=== PATIENT | male | born 1955 | race Two or more races ===

== ENCOUNTER 2020-10-07 10:14 | Emergency (ER) | payer SELFPAY ==
[~2020-10-07] VITALS: Ht 170.2 cm; Wt 86.2 kg
[2020-10-07 10:54] LABS: Basophils # (auto) 0 10 ^3/uL (0-0.2); Basophils % (auto) 0.4 % (0.0-2.0); Eosinophils # (auto) 0.2 10 ^3/uL (0-0.8); Eosinophils % (auto) 2.1 % (0.0-7.0); Hematocrit 41.6 % (41.0-53.0); Hemoglobin 14.7 g/dL (13.5-17.5); Lymphocytes # (auto) 2.7 10 ^3/uL (0.4-5.4); Lymphocytes % (auto) 23.6 % (10.0-50.0); Mean Corpuscular Hemoglobin 30.8 pg (28.0-32.0); Mean Corpuscular Hgb Conc. 35.4 g/dL (32.0-36.0); Mean Corpuscular Volume 87.2 fL (80.0-100.0); Monocytes # (auto) 0.9 10 ^3/uL (0-1.3); Neutrophils # (auto) 7.5 10 ^3/uL (1.6-8.6); Neutrophils % (auto) 65.9 % (37.0-80.0); Nucleated Red Blood Cells % 0.1 %; Red Blood Cells 4.77 10^6/uL (4.5-5.90); Red Cell Distribution Width 13.2 % (11.8-14.3); White Blood Cell 11.4 10^3/uL (4.4-10.8)
[2020-10-07] MEDS ORDERED: KETOROLAC TROMETH 30 MG/ML 1ML VIAL IV ONE (11:30)
[2020-10-07] MEDS ORDERED: SODIUM CHLORIDE 0.9% 500 ML IV ONE (11:30)
[2020-10-07] MEDS ORDERED: cefTRIAXone 1GM/50ML D5W 50 ML IV ONE (11:30)
[2020-10-07 11:54] LABS: Urine Bacteria NONE SEEN /hpf (None Seen); Urine Blood 3+ /uL (Negative); Urine Specific Gravity 1.024 (1.001-1.035); Urine WBC 6 /hpf (0 - 3)
[2020-10-07 12:45] VITALS: BP 118/75
== END 2020-10-07 12:49 | disposition home or self-care (01) ==
LOC: ER 10:14
DX: N45.1 Epididymitis (principal); N45.2 Orchitis
CPT/HCPCS: 36415; 76870; 81001; 85025; 85049; 96365; 96375; 99284; J0696; J1885; J7040

== ENCOUNTER 2023-09-14 08:45 | Inpatient (IN) | payer MEDICARE, MEDICAID ==
[~2023-09-14] VITALS: Ht 165.1 cm; Wt 79.2 kg
[2023-09-14] MEDS: amLODIPine BESYLATE 5 MG TAB PO ONE (09:16)
[2023-09-14 09:39] LABS: Basophils # (auto) 0 10 ^3/uL (0-0.2); Basophils % (auto) 0.4 % (0.0-2.0); Eosinophils # (auto) 0.3 10 ^3/uL (0-0.8); Eosinophils % (auto) 3.4 % (0.0-7.0); Hemoglobin 8.8 g/dL (13.5-17.5); Lymphocytes # (auto) 1.2 10 ^3/uL (0.4-5.4); Lymphocytes % (auto) 14.9 % (10.0-50.0); Mean Corpuscular Hemoglobin 30.8 pg (28.0-32.0); Mean Corpuscular Hgb Conc. 33.8 g/dL (32.0-36.0); Mean Corpuscular Volume 91.3 fL (80.0-100.0); Monocytes # (auto) 0.5 10 ^3/uL (0-1.3); Monocytes % (auto) 6.4 % (0.0-12.0); Neutrophils # (auto) 6.3 10 ^3/uL (1.6-8.6); Neutrophils % (auto) 74.9 % (37.0-80.0); Red Blood Cells 2.84 10^6/uL (4.5-5.90); Red Cell Distribution Width 13.3 % (11.8-14.3); White Blood Cell 8.4 10^3/uL (4.4-10.8)
[2023-09-14 09:46] LABS: Urine Bacteria FEW /hpf (None Seen); Urine Blood 2+ /uL (Negative); Urine Clarity Clear (Clear); Urine Protein, UAD 3+ (Negative); Urine Specific Gravity 1.011 (1.001-1.035); Urine Urobilinogen Normal (Negative); Urine WBC 3 /hpf (0 - 3)
[2023-09-14 09:47] LABS: Urine Color Straw (Yellow)
[2023-09-14 09:49] LABS: Anion Gap 18 (5-15); Calcium 6.4 mg/dL (8.5-10.1); Carbon Dioxide 14 mmol/L (20-30); Chloride 104 mmol/L (98-107); Sodium 136 mmol/L (136-145)
[2023-09-14 09:55] LABS: Glucose 89 mg/dL (74-106)
[2023-09-14 10:03] LABS: BUN/Creatinine Ratio 10.1 (10.0-20.0)
[2023-09-14 10:52] LABS: Blood Urea Nitrogen 150 mg/dL (9-23)
[2023-09-14] MEDS ORDERED: hydrALAZINE HCL 20 MG/ML VL IV PRN (12:15)
[2023-09-14] MEDS ORDERED: HYDROcodone-ACET 5/325MG TAB PO PRN (12:15)
[2023-09-14] MEDS ORDERED: MORPHINE SULFATE INJ 2 MG/ml SYRG IV PRN (12:15)
[2023-09-14] MEDS ORDERED: DOCUSATE SOD 100 MG CAP PO PRN (12:15)
[2023-09-14] MEDS ORDERED: ONDANSETRON HCL 4 MG/2 ML VIAL IV PRN (12:15)
[2023-09-14 12:26] LABS: % Iron Saturation 57.2 % (20-55)
[2023-09-14 12:28] LABS: Magnesium 2.3 mg/dL (1.6-2.6); Phosphorus 11.7 mg/dL (2.4-5.1)
[2023-09-14] MEDS ORDERED: hydrALAZINE HCL 25 MG TAB PO PRN (14:30)
[2023-09-14 14:55] VITALS: PULSE 91; RESP 17; O2SAT 98
[2023-09-14] MEDS: METOPROLOL TARTRATE 50 MG TAB PO SCH (15:07)
[2023-09-14] MEDS: hydrALAZINE HCL 25 MG TAB PO SCH (15:15)
[2023-09-14] MEDS: FAMOTIDINE 20 MG TAB PO SCH (15:44)
[2023-09-14] MEDS: SODIUM BICARBONATE 650 MG TAB PO SCH (18:20)
[2023-09-14] MEDS: SEVELAMER 800 MG TAB PO SCH (18:20)
[2023-09-14] MEDS ORDERED: SODIUM ZIRCONIUM CYCL 10 GM PAK PO SCH (19:45)
[2023-09-14 20:00] VITALS: PULSE 70; RESP 17; O2SAT 99
[2023-09-14] MEDS: SODIUM ZIRCONIUM CYCL 10 GM PAK PO SCH (20:58)
[2023-09-14 21:42] LABS: Creatinine, Urine 54.69 mg/dL (30.0-125.0)
[2023-09-14 21:45] LABS: Protein, Urine 475.2 mg/dL (0.0-11.9); Urine Protein/Creatinine Ratio 8.69
[2023-09-14 22:31] VITALS: BP 109/93; PULSE 72; RESP 16; TEMP 97.6; O2SAT 97
[2023-09-14 22:35] VITALS: PULSE 72; RESP 16; O2SAT 97
[2023-09-14 23:59] VITALS: BP 109/93; PULSE 72; RESP 16; TEMP 97.6; O2SAT 97
[2023-09-15 01:00] VITALS: BP 150/84; PULSE 69; RESP 18; TEMP 98.4; O2SAT 99
[2023-09-15 05:00] VITALS: BP 146/81; PULSE 69; RESP 18; TEMP 98; O2SAT 98
[2023-09-15 07:02] LABS: Basophils # (auto) 0 10 ^3/uL (0-0.2); Basophils % (auto) 0.6 % (0.0-2.0); Eosinophils # (auto) 0.3 10 ^3/uL (0-0.8); Eosinophils % (auto) 3.4 % (0.0-7.0); Hematocrit 24.4 % (41.0-53.0); Hemoglobin 8.3 g/dL (13.5-17.5); Lymphocytes # (auto) 1.4 10 ^3/uL (0.4-5.4); Lymphocytes % (auto) 18.4 % (10.0-50.0); Mean Corpuscular Hemoglobin 30.8 pg (28.0-32.0); Mean Corpuscular Hgb Conc. 33.9 g/dL (32.0-36.0); Mean Corpuscular Volume 90.8 fL (80.0-100.0); Monocytes # (auto) 0.6 10 ^3/uL (0-1.3); Monocytes % (auto) 7.4 % (0.0-12.0); Neutrophils # (auto) 5.5 10 ^3/uL (1.6-8.6); Neutrophils % (auto) 70.2 % (37.0-80.0); Red Blood Cells 2.69 10^6/uL (4.5-5.90); Red Cell Distribution Width 13.5 % (11.8-14.3); White Blood Cell 7.9 10^3/uL (4.4-10.8)
[2023-09-15 07:16] LABS: Alanine Aminotransferase 12 U/L (7-40); Alkaline Phosphatase 51 U/L (46-116); Anion Gap 17 (5-15); Aspartate Aminotransferase < 8 U/L (13-40); BUN/Creatinine Ratio 9.7 (10.0-20.0); Bilirubin, Total < 0.2 mg/dL (0.2-1.0); Calcium 6.4 mg/dL (8.7-10.4); Carbon Dioxide 14 mmol/L (20-30); Chloride 104 mmol/L (98-107); Glucose 90 mg/dL (74-106); Magnesium 2.2 mg/dL (1.6-2.6); Potassium 4.9 mmol/L (3.5-5.1); Sodium 135 mmol/L (136-145); Total Protein 6.6 g/dL (5.7-8.2)
[2023-09-15 07:24] LABS: Blood Urea Nitrogen 147 mg/dL (9-23)
[2023-09-15 08:00] LABS: INR 1.09 (0.9-1.15); Partial Thromboplastin Time 30.3 SEC (24.5-34.5); Prothrombin Time 11.5 sec (9.3-11.8)
[2023-09-15 09:29] VITALS: BP 152/77; PULSE 66; RESP 17; TEMP 97.9; O2SAT 96
[2023-09-15] MEDS: amLODIPine BESYLATE 5 MG TAB PO SCH (09:47)
[2023-09-15] MEDS: LOSARTAN POTASSIUM 50 MG TAB PO SCH (09:50)
[2023-09-15] MEDS: LIDOCAINE 1% HCL (LOCAL ANESTH.) INJ 20ML MDV IJ ONE (12:00)
[2023-09-15 12:30] VITALS: BP 160/82; PULSE 64; RESP 19; TEMP 97.8; O2SAT 99
[2023-09-15] MEDS: SODIUM CHL 0.9% 1000 ML BAG XX ONE (17:17)
[2023-09-15 21:00] VITALS: BP 150/75; PULSE 65; RESP 18; TEMP 97.8; O2SAT 97
[2023-09-15] MEDS: EPOETIN ALFA-EPBX 10,000 UNIT/1ML VIAL SC ONE (21:03)
[2023-09-16 01:00] VITALS: BP 144/68; PULSE 69; RESP 20; TEMP 98.5; O2SAT 98
[2023-09-16 05:00] VITALS: BP 149/76; PULSE 65; RESP 20; TEMP 98.3; O2SAT 99
[2023-09-16 06:08] LABS: Basophils # (auto) 0.1 10 ^3/uL (0-0.2); Basophils % (auto) 0.8 % (0.0-2.0); Eosinophils # (auto) 0.2 10 ^3/uL (0-0.8); Eosinophils % (auto) 2.7 % (0.0-7.0); Hematocrit 23.3 % (41.0-53.0); Hemoglobin 8.1 g/dL (13.5-17.5); Lymphocytes # (auto) 1.3 10 ^3/uL (0.4-5.4); Lymphocytes % (auto) 16.9 % (10.0-50.0); Mean Corpuscular Hemoglobin 30.8 pg (28.0-32.0); Mean Corpuscular Hgb Conc. 34.9 g/dL (32.0-36.0); Mean Corpuscular Volume 88.3 fL (80.0-100.0); Monocytes # (auto) 0.8 10 ^3/uL (0-1.3); Monocytes % (auto) 10.2 % (0.0-12.0); Neutrophils # (auto) 5.2 10 ^3/uL (1.6-8.6); Neutrophils % (auto) 69.4 % (37.0-80.0); Red Blood Cells 2.64 10^6/uL (4.5-5.90); Red Cell Distribution Width 13.6 % (11.8-14.3); White Blood Cell 7.6 10^3/uL (4.4-10.8)
[2023-09-16 06:38] LABS: Albumin 3.9 g/dL (3.2-4.8); Alkaline Phosphatase 50 U/L (46-116); Anion Gap 13 (5-15); Aspartate Aminotransferase < 8 U/L (13-40); BUN/Creatinine Ratio 8.8 (10.0-20.0); Calcium 7.2 mg/dL (8.7-10.4); Carbon Dioxide 23 mmol/L (20-30); Chloride 101 mmol/L (98-107); Glucose 86 mg/dL (74-106); Magnesium 2.1 mg/dL (1.6-2.6); Potassium 3.9 mmol/L (3.5-5.1); Sodium 137 mmol/L (136-145)
[2023-09-16 06:39] LABS: Bilirubin, Total 0.2 mg/dL (0.2-1.0); Phosphorus 10.2 mg/dL (2.4-5.1); Total Protein 6.4 g/dL (5.7-8.2)
[2023-09-16 06:45] LABS: Alanine Aminotransferase 9 U/L (7-40); Blood Urea Nitrogen 102 mg/dL (9-23)
[2023-09-16] MEDS ORDERED: SODIUM CHL 0.9% 1000 ML BAG XX ONE (07:00)
[2023-09-16] MEDS ORDERED: SODIUM BICARBONATE 650 MG TAB PO SCH (08:00)
[2023-09-16 08:56] LABS: Hepatitis B Surface Antigen Negative (Negative)
[2023-09-16 09:17] LABS: Hepatitis A Ab IgM Negative
[2023-09-16 09:18] LABS: Hepatitis B Core IgM Negative
[2023-09-16 09:19] LABS: Hepatitis C Antibody Negative (Negative)
[2023-09-16] MEDS: hydrALAZINE HCL 25 MG TAB PO SCH (09:28)
[2023-09-16] MEDS: LOSARTAN POTASSIUM 50 MG TAB PO SCH (09:30)
[2023-09-16 09:33] VITALS: BP 147/85; PULSE 61; RESP 18; TEMP 98.1; O2SAT 97
[2023-09-16] MEDS: ACETAMINOPHEN 325 MG TAB PO PRN (09:41)
[2023-09-16] MEDS ORDERED: EPOETIN ALFA-EPBX 10,000 UNIT/1ML VIAL SC SCH (10:00)
[2023-09-16 12:41] VITALS: BP 144/83; PULSE 65; RESP 19; TEMP 97.8; O2SAT 97
[2023-09-16 17:07] VITALS: BP 119/66; PULSE 66; RESP 20; TEMP 98.1; O2SAT 96
[2023-09-16 21:00] VITALS: BP 141/87; PULSE 69; RESP 20; TEMP 97.5; O2SAT 97
[2023-09-16] MEDS: EPOETIN ALFA-EPBX 10,000 UNIT/1ML VIAL SC SCH (21:23)
[2023-09-17] VITALS (10 sets, daily range): BP systolic 140–166; BP diastolic 74–84; PULSE 62–71; RESP 12–18; TEMP 98.2–98.9; O2SAT 94–98
[2023-09-17 06:32] LABS: Anion Gap 10 (5-15); Calcium 7.9 mg/dL (8.7-10.4); Carbon Dioxide 27 mmol/L (20-30); Chloride 101 mmol/L (98-107); Potassium 3.6 mmol/L (3.5-5.1); Sodium 138 mmol/L (136-145)
[2023-09-17 06:37] LABS: Glucose 93 mg/dL (74-106)
[2023-09-17 06:39] LABS: BUN/Creatinine Ratio 7.4 (10.0-20.0)
[2023-09-17 06:41] LABS: Phosphorus 6.8 mg/dL (2.4-5.1)
[2023-09-17 06:43] LABS: Basophils # (auto) 0.1 10 ^3/uL (0-0.2); Eosinophils # (auto) 0.2 10 ^3/uL (0-0.8); Hemoglobin 8.4 g/dL (13.5-17.5); Lymphocytes # (auto) 2.1 10 ^3/uL (0.4-5.4); Mean Corpuscular Hemoglobin 31.1 pg (28.0-32.0); White Blood Cell 7.5 10^3/uL (4.4-10.8)
[2023-09-17 06:46] LABS: Basophils % (auto) 0.7 % (0.0-2.0); Blood Urea Nitrogen 70 mg/dL (9-23); Hematocrit 24.3 % (41.0-53.0); Lymphocytes % (auto) 27.6 % (10.0-50.0); Mean Corpuscular Hgb Conc. 34.6 g/dL (32.0-36.0); Mean Corpuscular Volume 89.9 fL (80.0-100.0); Monocytes # (auto) 0.9 10 ^3/uL (0-1.3); Neutrophils # (auto) 4.2 10 ^3/uL (1.6-8.6); Neutrophils % (auto) 56.7 % (37.0-80.0); Nucleated Red Blood Cells % 0.1 %; Red Cell Distribution Width 13.2 % (11.8-14.3)
[2023-09-17] MEDS ORDERED: SODIUM CHL 0.9% 1000 ML BAG XX ONE (07:00)
[2023-09-17] MEDS: LIDOCAINE 2%HCL (LOCAL ANESTH.) INJ 20ML MDV ONE (10:35)
[2023-09-17] MEDS: fentaNYL CITRATE 100 MCG/2 ML VL ONE (10:37)
[2023-09-17] MEDS: HEPARIN SODIUM (PORCINE) 5000 UNITS/ML 1ML VIAL ONE (10:37)
[2023-09-17] MEDS: MIDAZOLAM HCL 2MG/2ML 2ml VIAL (1mg/ml) ONE (10:37)
[2023-09-17] MEDS: ceFAZolin 1GM/50ML 50 ML IV ONE (10:55)
[2023-09-17] MEDS: ERGOCALCIFEROL 50,000 UNIT(1.25MG) CAP PO SCH (16:38)
[2023-09-17] MEDS: LOSARTAN POTASSIUM 50 MG TAB PO SCH (22:29)
[2023-09-17] MEDS: EPOETIN ALFA-EPBX 10,000 UNIT/1ML VIAL SC ONE (22:30)
[2023-09-18 01:00] VITALS: BP 146/83; PULSE 55; RESP 18; TEMP 99.1; O2SAT 98
[2023-09-18] MEDS: MELATONIN 5 MG TAB PO ONE (01:24)
[2023-09-18 05:00] VITALS: BP 121/87; PULSE 60; RESP 16; TEMP 98.3; O2SAT 97
[2023-09-18 06:47] LABS: Basophils # (auto) 0.1 10 ^3/uL (0-0.2); Basophils % (auto) 0.6 % (0.0-2.0); Eosinophils # (auto) 0.2 10 ^3/uL (0-0.8); Eosinophils % (auto) 2.5 % (0.0-7.0); Hematocrit 25.4 % (41.0-53.0); Hemoglobin 8.5 g/dL (13.5-17.5); Lymphocytes # (auto) 1.6 10 ^3/uL (0.4-5.4); Lymphocytes % (auto) 18.1 % (10.0-50.0); Mean Corpuscular Hemoglobin 30.9 pg (28.0-32.0); Mean Corpuscular Hgb Conc. 33.6 g/dL (32.0-36.0); Mean Corpuscular Volume 91.8 fL (80.0-100.0); Monocytes # (auto) 0.9 10 ^3/uL (0-1.3); Monocytes % (auto) 9.9 % (0.0-12.0); Neutrophils # (auto) 5.9 10 ^3/uL (1.6-8.6); Neutrophils % (auto) 68.9 % (37.0-80.0); Red Blood Cells 2.76 10^6/uL (4.5-5.90); White Blood Cell 8.6 10^3/uL (4.4-10.8)
[2023-09-18] MEDS ORDERED: SODIUM CHL 0.9% 1000 ML BAG XX ONE (07:00)
[2023-09-18 07:31] LABS: Alanine Aminotransferase 11 U/L (7-40); Alkaline Phosphatase 52 U/L (46-116); Anion Gap 10 (5-15); BUN/Creatinine Ratio 5.4 (10.0-20.0); Calcium 8.2 mg/dL (8.5-10.1); Carbon Dioxide 27 mmol/L (20-30); Chloride 102 mmol/L (98-107); Glucose 83 mg/dL (74-106); Magnesium 2.1 mg/dL (1.6-2.6); Potassium 3.8 mmol/L (3.5-5.1); Sodium 139 mmol/L (136-145)
[2023-09-18 07:32] LABS: Albumin 4.1 g/dL (3.2-4.8); Aspartate Aminotransferase < 8 U/L (13-40)
[2023-09-18 07:33] LABS: Bilirubin, Total 0.3 mg/dL (0.2-1.0); Total Protein 6.6 g/dL (5.7-8.2)
[2023-09-18 07:42] LABS: Blood Urea Nitrogen 39 mg/dL (9-23)
[2023-09-18 09:00] VITALS: BP 138/69; PULSE 63; RESP 18; TEMP 98.3; O2SAT 96
[2023-09-18] MEDS ORDERED: AML5T PO (11:46)
[2023-09-18] MEDS ORDERED: MET50T PO (11:46)
[2023-09-18] MEDS ORDERED: ERGO1CAP23 PO (11:46)
[2023-09-18] MEDS ORDERED: SEVE800T7 PO (11:46)
[2023-09-18] MEDS ORDERED: LOSA-534 PO (11:46)
[2023-09-18] MEDS ORDERED: HYDR25TA87 PO (11:46)
[2023-09-18 13:00] VITALS: BP 144/95; PULSE 69; RESP 18; TEMP 98.2; O2SAT 96
[2023-09-18 15:24] VITALS: BP 140/83; PULSE 55; TEMP 36.8
[2023-09-18 17:00] VITALS: BP 117/62; PULSE 81; RESP 18; TEMP 98; O2SAT 98
[2023-09-18] MEDS ORDERED: EPOETIN ALFA-EPBX 10,000 UNIT/1ML VIAL SC ONE (21:00)
== END 2023-09-18 17:20 | disposition home or self-care (01) | DRG 674 ==
LOC: ER 08:45 → OVERFLOW 12:05 → WEST WING 22:01
PROVIDERS: ADMIT Internal Medicine Pulmonary Disease; ATTEND Internal Medicine Pulmonary Disease
PROC: 5A1D70Z Performance of Urinary Filtration, Intermittent, Less than 6 Hours Per Day (ICD-10-PCS; principal; 2023-09-15)
PROC: 02HV33Z Insertion of Infusion Device into Superior Vena Cava, Percutaneous Approach (ICD-10-PCS; 2023-09-15)
PROC: 5A1D70Z Performance of Urinary Filtration, Intermittent, Less than 6 Hours Per Day (ICD-10-PCS; 2023-09-16)
PROC: 0JH63XZ Insertion of Tunneled Vascular Access Device into Chest Subcutaneous Tissue and Fascia, Percutaneous Approach (ICD-10-PCS; 2023-09-17)
PROC: 02H633Z Insertion of Infusion Device into Right Atrium, Percutaneous Approach (ICD-10-PCS; 2023-09-17)
PROC: B5181ZA Fluoroscopy of Superior Vena Cava using Low Osmolar Contrast, Guidance (ICD-10-PCS; 2023-09-17)
PROC: B548ZZA Ultrasonography of Superior Vena Cava, Guidance (ICD-10-PCS; 2023-09-17)
DX: N17.9 Acute kidney failure, unspecified (principal); E87.20 Acidosis, unspecified; I12.0 Hypertensive chronic kidney disease with stage 5 chronic kidney disease or end stage renal disease; N18.6 End stage renal disease; I16.0 Hypertensive urgency; D63.1 Anemia in chronic kidney disease; E87.5 Hyperkalemia; E83.39 Other disorders of phosphorus metabolism; Z83.3 Family history of diabetes mellitus; Z82.49 Family history of ischemic heart disease and other diseases of the circulatory system
CPT/HCPCS: 36415; 36556; 36558; 71045; 76775; 77001; 80048; 80053; 80074; 81001; 82306; 82570; 82728; 83540; 83550; 83735; 83970; 84100; 84156; 84300; 84484; 84550; 85025; 85610; 85730; 86850; 86900; 86901; 90935; 93005; 99152; C1894; G0378; J1642; J2001; J2250

== ENCOUNTER 2024-08-07 10:49 | Inpatient (IN) | payer MEDICARE, MEDICAID ==
[~2024-08-07] VITALS: Ht 167.6 cm; Wt 66.3 kg
[~2024-08-07 10:49] MED LIST: AML5T PO; ERGO1CAP23 PO; HYDR25TA87 PO; LOSA-534 PO; MET50T PO; SEVE800T7 PO
--- NOTE | 2024-08-07 11:21 | ED.PDOC ---
History of Present Illness HPI Comments 69 year old male presents to the ED with a chief complaint of generalized weakness onset 1 week. Patient sates he has been experiencing generalized weakness, shortness of breath, nausea, abdominal pain and cough with phlegm. Patient gets dialysis on Wednesday, , Wednesday. PMHx HTN. Denies vomiting, diarrhea, headache, dizziness, chest pain, dysuria. No other symptoms or modifying factors present at this time. Time Seen by MD: 11:01 Primary Care Provider: LUCERO Reviewed Notes: Medications, Allergies Allergies: Coded Allergies: NO KNOWN ALLERGIES (Unverified , 10/07/20) Home Meds Active Scripts Sevelamer Hydrochloride (Renagel) 800 Mg Tab, 1600 MG PO TIDWM for 30 Days, #180 TAB 2 Refills Prov:[facility] 09/18/23 Metoprolol Tartrate (LOPRESSOR TABLET) 50 Mg Tb, 50 MG PO BID for 30 Days, #60 TAB 2 Refills Prov:[facility] 09/18/23 Losartan Potassium (Losartan Potassium) 50 Mg Tab, 100 MG PO DAILY for 30 Days, #60 TAB 2 [facility] Hydralazine HCl (Hydralazine HCl) 25 Mg Tab, 50 MG PO Q6H for 30 Days, #240 TAB 2 Refills Prov:[facility] 09/18/23 Ergocalciferol (VITAMIN D 63653 UNIT) 50,000 [place], [address] UNIT PO Q7D for 90 Days, #16 CAP Prov:[facility] 09/18/23 Amlodipine Besylate (NORVASC TABLET) 5 Mg Tb, 10 MG PO DAILY for 30 Days, #60 TAB 2 Refills Prov:[facility] 09/18/23 Information Source: Patient, Spouse Mode of Arrival: Ambulatory Severity: Moderate Timing: Weeks Duration: Since onset Prehospital treatment: None Past Medical History PAST MEDICAL HISTORY: HTN Surgical History: Denies all surgeries Family History Family History: Family hx of DM, Family hx of heart nikkie Social History Smoker: Non-Smoker Alcohol: Occasionally Drugs: Denies Drug Use Lives In: Home Constitutional: reports: weakness; denies: chills, diaphoresis, fatigue, fever, malaise, sweats, others EENTM: denies: blurred vision, double vision, ear bleeding, ear discharge, ear drainage, ear pain, ear ringing, eye pain, eye redness, hearing loss, mouth pain, mouth swelling, nasal discharge, nose bleeding, nose congestion, nose pain, photophobia, tearing, throat pain, throat swelling, voice changes, others Respiratory: reports: cough, shortness of breath; denies: hemoptysis, orthopnea, SOB at rest, SOB with excertion, stridor, wheezing, others Cardiovascular: denies: chest pain, dizzy spells, diaphoresis, Dyspnea on exertion, edema, irregular heart beat, left arm pain, lightheadedness, palpitations, PND, syncope, others Gastrointestinal: reports: abdominal pain, nausea; denies: abdomen distended, blood streaked bowels, constipated, diarrhea, dysphagia, difficulty swallowing, hematemesis, melena, poor appetite, poor fluid intake, rectal bleeding, rectal pain, vomiting, others Genitourinary: denies: burning, dysuria, flank pain, frequency, hematuria, incontinence, penile discharge, penile sore, pain, testicle pain, testicle swelling, urgency, others Neurological: reports: weakness; denies: dizziness, fainting, headache, left sided numbness, left sided weakness, numbness, paresthesia, pre-existing deficit, right sided numbness, right sided weakness, seizure, speech problems, tingling, tremors, others Musculoskeletal: reports: back pain; denies: gout, joint pain, joint swelling, muscle pain, muscle stiffness, neck pain, others Integumetry: denies: bruises, change in color, change in hair/nails, dryness, laceration, lesions, lumps, rash, wounds, others Allergic/Immunocompromised: denies: Difficulty Healing, Frequent Infections, Hives, Itching, others Hematologic/Lymphatic: denies: anemia, blood clots, easy bleeding, easy bruising, swollen glands, others Endocrine: denies: excessive hunger, excessive sweating, excessive thirst, excessive urination, flushing, intolerance to cold, intolerance to heat, unexplained weight gain, unexplained weight loss, others Psychiatric: denies: anxiety, bipolar disorder, depression, hopeless, panic disorder, schizophrenia, sleepless, suicidal, others All Other Systems: Reviewed and Negative Physical Exam General Appearance: Moderate Distress, Normal HEENT: Normal ENT Inspection, Pharynx Normal, TMs Normal Neck: Full Range of Motion, Non-Tender, Normal, Normal Inspection Respiratory: Chest Non-Tender, Lungs Clear, No Accessory Muscle Use, No Respiratory Distress, Normal Breath Sounds Cardiovascular: No Edema, No JVD, No Murmur, No Gallop, Normal Peripheral Pulses, Regular Rate/Rhythm Breast Exam: Deferred Gastrointestinal: No Organomegaly, Non Tender, No Pulsatile Mass, Normal Bowel Sounds, Soft Genitalia: Deferred Pelvic: Deferred Rectal: Deferred Extremities: No calf tenderness, Normal capillary refill, Normal inspection, Normal range of motion, Non-tender, No pedal edema Musculoskeletal : Apperance: Normal Neurologic: Alert, facility administrator II-XII nml as Tested, No Motor Deficits, Normal Affect, Normal Mood, No Sensory Deficits Cerebellar Function: Normal Reflexes: Normal Skin: Dry, Normal Color, Warm Peripheral Pulses: 3+ Radial (R), 3+ Radial (L) Lymphatic: No Adenopathy Was a procedure done? Was a procedure done?: No Differential Dx Considerations may include: Anemia Electrolyte imbalance X-Ray, Labs, Meds, VS Vital Signs Date Time Temp Pulse Resp B/P (MAP) Pulse Ox O2 Delivery O2 Flow Rate FiO2 08/07/24 13:34 97.8 63 16 163/85 (111) 98 97.8 08/07/24 12:45 16 96 Room Air* 0 21 08/07/24 11:43 178/119 08/07/24 11:39 60 08/07/24 11:32 Room Air 0 08/07/24 11:32 97.8 65 18 178/119 (138) 96 97.8 Lab Test 08/07/24 14:15 08/07/24 11:40 08/07/24 11:37 Range/Units Potassium Level 5.2 H 5.7 *H 3.5-5.1 mmol/L POC Glucose 110 H 70-106 mg/dl White Blood Count 8.4 4.4-10.8 10^3/uL Red Blood Count 3.59 L 4.5-5.90 10^6/uL Hemoglobin 10.9 L 13.5-17.5 g/dL Hematocrit 33.0 L 41.0-53.0 % Mean Corpuscular Volume 91.8 80.0-100.0 fL Mean Corpuscular Hemoglobin 30.4 28.0-32.0 pg Mean Corpuscular Hemoglobin Concent 33.2 32.0-36.0 g/dL Red Cell Distribution Width 16.8 H 11.8-14.3 % Platelet Count 173 140-450 10^3/uL Mean Platelet Volume 9.4 6.9-10.8 fL Neutrophils (%) (Auto) 70.1 37.0-80.0 % Lymphocytes (%) (Auto) 20.0 10.0-50.0 % Monocytes (%) (Auto) 9.2 0.0-12.0 % Eosinophils (%) (Auto) 0.3 0.0-7.0 % Basophils (%) (Auto) 0.4 0.0-2.0 % Neutrophils # (Auto) 5.9 1.6-8.6 10 ^3/uL Lymphocytes # (Auto) 1.7 0.4-5.4 10 ^3/uL Monocytes # (Auto) 0.8 0-1.3 10 ^3/uL Eosinophils # (Auto) 0 0-0.8 10 ^3/uL Basophils # (Auto) 0 0-0.2 10 ^3/uL Nucleated Red Blood Cells 0.0 % Sodium Level 134 L 136-145 mmol/L Chloride Level 93 L 98-107 mmol/L Carbon Dioxide Level 26 20-31 mmol/L Anion Gap 15 5-15 Blood Urea Nitrogen 64 H 9-23 mg/dL Creatinine 7.62 H 0.700-1.30 mg/dL Glomerular Filtration Rate Calc 7 >90 mL/min BUN/Creatinine Ratio 8.4 L 10.0-20.0 Serum Glucose 101 74-106 mg/dL Hemoglobin A1c 5.3 <5.7 % A1C Calcium Level 9.6 8.7-10.4 mg/dL Troponin I High Sensitivity 30 </=54 ng/L B-Type Natriuretic Peptide > 5000.00 0-100 pg/mL Triglycerides Level 95 < 150 mg/dL Cholesterol Level 125 < 200 mg/dL LDL Cholesterol 68 < 100 mg/dL HDL Cholesterol 37 L 40-59 mg/dL Current Medications Medications (Trade) Dose Ordered Sig/Noa Route Start Time Stop Time Status Last Admin Clonidine HCl (Catapres Tablet) 0.2 mg ONCE ONCE PO 08/07/24 11:45 08/07/24 11:46 DC 08/07/24 11:43 Albuterol (Ventolin Medneb) 20 mg ONCE ONCE NEB 08/07/24 12:30 08/07/24 12:31 DC 08/07/24 12:45 Patient alert. Complaining of generalized weakness. Vitals stable. Answering questions He is on dialysis. His dialysis are Wednesday. Blood pressure elevated. Given clonidine. GI symptoms could be from gastroenteritis. Establish intravenous access. Was given Zofran. Explained to the patient. Continue to monitor. EKG reviewed does not show any acute changes. [facility] approved inpatient admission [id number]. [place] [address] Ph: [phone] DIAGNOSTIC IMAGING Diagnostic Imaging Report : [id number] Signed PATIENT: MASON LOPEZ ACCT: [id number] UNIT: [id number] : 1955 LOC: ER ROOM / BED: / AGE / SEX: 69 / M ADM STATUS: REG ER SERVICE 1121 ORDERING PHYSICIAN: WYATT KUMAR MD PROCEDURE(s): CXRP - CHEST PORTABLE REASON: sob ORDER NUMBER(s): [id number], ACCESSION NUMBER(s): [id number] CHEST RADIOGRAPH Indication: sob Technique: Single frontal view of the chest was obtained COMPARISON: XY CHEST XRAY 1 VIEW on DOS: 09/15/23, XY CHEST PORTABLE on DOS: 09/15/23, XY CHEST XRAY 1 VIEW on DOS: 09/15/23 FINDINGS: Lines and Tubes: Right central venous catheter in satisfactory position Lungs: Mild congestion Pleura: No effusion. No pneumothorax. Cardiomediastinal contours: Unremarkable Bones: Unremarkable IMPRESSION: Mild congestion ATED BY: JOSE TOLEDO MD DICTATED DATE/TIME: 08/07/241213 SIGNED BY: JOSE TOLEDO MD SIGNED DATE/TIME: 08/07/241213 CC: Time of 1ST Reevaluation: 11:31 Reevaluation 1ST: Unchanged Patient Education/Counseling: Diagnosis, Treatment, Prognosis Family Education/Counseling: Diagnosis, Treatment, Prognosis Departure 1 Departure Time of Disposition: 11:37 Impression: Primary Impression: Hyperkalemia Additional Impressions: Hypertensive urgency Anemia of chronic disease Disposition: 09 ADMITTED INPATIENT Admit to: Med Surg Condition: Guarded Critical Care Note Critical Care Time?: Yes (90 min-critical care time only) Critical care comment: Hyperkalemia Monitor blood pressure Stability Stability form required: No Heart Score Heart Score: Heart Score Response (Comments) Value History Slightly Suspicious 0 EKG Normal 0 Age >65 2 Risk Factors >3 or Hx ASHD 2 Troponin Normal limit 0 Total 4 I personally scribed for WYATT KUMAR MD ([email or web address]) on 08/07/24 at 11:21. Electronically submitted by Arlen Reyna ([email or web address]). I personally scribed for WYATT KUMAR MD ([email or web address]) on 08/07/24 at 13:00. Electronically submitted by Arlen Reyna ([email or web address]). WYATT KUMAR MD August 07, 2024 11:21
[2024-08-07] MEDS: cloNIDine HCL 0.1 MG TAB PO ONE (11:43)
[2024-08-07 11:57] LABS: Basophils # (auto) 0 10 ^3/uL (0-0.2); Basophils % (auto) 0.4 % (0.0-2.0); Eosinophils # (auto) 0 10 ^3/uL (0-0.8); Eosinophils % (auto) 0.3 % (0.0-7.0); Hemoglobin 10.9 g/dL (13.5-17.5); Lymphocytes # (auto) 1.7 10 ^3/uL (0.4-5.4); Mean Corpuscular Hemoglobin 30.4 pg (28.0-32.0); Mean Corpuscular Hgb Conc. 33.2 g/dL (32.0-36.0); Mean Corpuscular Volume 91.8 fL (80.0-100.0); Monocytes # (auto) 0.8 10 ^3/uL (0-1.3); Monocytes % (auto) 9.2 % (0.0-12.0); Neutrophils # (auto) 5.9 10 ^3/uL (1.6-8.6); Neutrophils % (auto) 70.1 % (37.0-80.0); Platelet Count (auto) 173 10^3/uL (140-450); Red Blood Cells 3.59 10^6/uL (4.5-5.90); Red Cell Distribution Width 16.8 % (11.8-14.3); White Blood Cell 8.4 10^3/uL (4.4-10.8)
[2024-08-07 12:08] LABS: Anion Gap 15 (5-15); Carbon Dioxide 26 mmol/L (20-31)
[2024-08-07 12:09] LABS: Calcium 9.6 mg/dL (8.7-10.4)
[2024-08-07 12:13] LABS: Glucose 101 mg/dL (74-106)
[2024-08-07 12:14] LABS: BUN/Creatinine Ratio 8.4 (10.0-20.0); Blood Urea Nitrogen 64 mg/dL (9-23); Chloride 93 mmol/L (98-107); Sodium 134 mmol/L (136-145)
[2024-08-07 12:16] LABS: Potassium 5.7 mmol/L (3.5-5.1)
--- NOTE | 2024-08-07 12:16 | DVH ---
CHEST RADIOGRAPH Indication: sob Technique: Single frontal view of the chest was obtained COMPARISON: XY CHEST XRAY 1 VIEW on DOS: 09/15/23, XY CHEST PORTABLE on DOS: 09/15/23, XY CHEST XRAY 1 VIEW on DOS: 09/15/23 FINDINGS: Lines and Tubes: Right central venous catheter in satisfactory position Lungs: Mild congestion Pleura: No effusion. No pneumothorax. Cardiomediastinal contours: Unremarkable Bones: Unremarkable IMPRESSION: Mild congestion
[2024-08-07] MEDS: ALBUTEROL SULF 2.5 MG/0.5ML(0.5%) NEB SOLN NEB ONE (12:45)
[2024-08-07 14:32] LABS: Triglycerides 95 mg/dL (< 150)
[2024-08-07 14:33] LABS: LDL Cholesterol 68 mg/dL (< 100)
[2024-08-07 14:34] LABS: Cholesterol 125 mg/dL (< 200)
[2024-08-07 14:36] LABS: HDL Cholesterol 37 mg/dL (40-59)
--- NOTE | 2024-08-07 14:39 | DVHCONRES ---
Date Seen: August 07, 2024 Resident Creating Document: MARIALUISA LEONARD RESIDENT Referring Physician Dr. Anderson Reason for Consultation ESRD on HD with hyperkalemia History of Present Illness This is a 69-year-old male with past medical history of hypertension and end-stage renal disease on hemodialysis on (Wednesday//Wednesday), patient last hemodialysis session was performed last Wednesday. Patient presented to the ED with chief complaint of generalized weakness and shortness of breaths that has been going on for the past three weeks. 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 The patient also reports associated low back pain and generalized abdominal tenderness that usually gets worse after defecation. Patient admits that recently he has been suffering from constipation and last bowel movement was three days ago. Patient denies nausea, vomiting, diarrhea, fever/chills, chest pain or any other additional symptoms at this time. Upon my examination, bilateral lung sounds grossly clear, heart sounds are regular and rhythmic, there is very mild tenderness to deep palpation of the abdomen, negative costovertebral angle tenderness bilaterally. There is no peripheral edema at this time. Patient states that he is feeling well overall. Upon admission, CBC showed hemoglobin of 10.9, BMP showed hyperkalemia at 5.7 for which patient received hyperkalemia protocol at the ED. BUN and creatinine are 64 and 7.64 respectively. We ordered BNP, UA, urine creatinine, urine sodium, urine protein to creatinine ratio. We will schedule hemodialysis for the patient tomorrow. Home medications: Hydralazine 25 mg q.6, losartan 100 mg daily, metoprolol tartrate 50 mg b.i.d.. Past Medical History Hypertension Past Surgical History No past surgical history Family History: Patient reports no known family medical history. Family History Noncontributory Social History Patient stated quit smoking more than 20 years ago, denies alcohol or drug consu mption. Allergies: Coded Allergies: NO KNOWN ALLERGIES (Unverified , 10/07/20) Home Meds Active Scripts Sevelamer Hydrochloride (Renagel) 800 Mg Tab, 1600 MG PO TIDWM for 30 Days, #180 TAB 2 Refills Prov:MARIA LUISA BUSTOS RESIDENT 6/22/24 Metoprolol Tartrate (LOPRESSOR TABLET) 50 Mg Tb, 50 MG PO BID for 30 Days, #60 TAB 2 Refills Prov:MARIA LUISA BUSTOS 09/18/23 Losartan Potassium (Losartan Potassium) 50 Mg Tab, 100 MG PO DAILY for 30 Days, #60 TAB 2 Refills Prov:MARIA LUISA BUSTOS 09/18/23 Hydralazine HCl (Hydralazine HCl) 25 Mg Tab, 50 MG PO Q6H for 30 Days, #240 TAB 2 Refills Prov:MARIA LUISA BUSTOS 09/18/23 Ergocalciferol (VITAMIN D 56699 UNIT) 50,000 [place], [address] UNIT PO Q7D for 90 Days, #16 CAP Prov:MARIA LUISA BUSTOS 09/18/23 Amlodipine Besylate (NORVASC TABLET) 5 Mg Tb, 10 MG PO DAILY for 30 Days, #60 TAB 2 Refills Prov:MARIA LUISA BUSTOS 09/18/23 Reported Medications Hydrocortone (Hydrocortisone 2.5%) 1 Applic Ap, TOP 08/08/24 Losartan Potassium (Losartan Potassium) 100 Mg Tab, PO 08/08/24 Hydralazine Hcl (Hydralazine Hcl) 100 Mg Tab, 1 TAB PO TID 08/08/24 Review of Systems ROS Constitutional: Reports generalized weakness. Denies weight loss, fever and chills. HEENT: Denies changes in vision and hearing. Respiratory: Reports mild shortness of breath that is worse overnight. Denies cough Cardiovascular: Denies chest discomfort or palpitations GI: Reports mild abdominal pain generalized and constipation. Denies nausea, vomiting or diarrhea : Denies dysuria and urinary frequency. Musculoskeletal: Denies myalgias and joint pain Skin: Denies rash and pruritus. Neurological: Denies dizziness, headache, vision or hearing problems Vital Signs Vital Signs Date Time Temp Pulse Resp B/P (MAP) Pulse Ox O2 Delivery O2 Flow Rate FiO2 08/07/24 13:34 97.8 63 16 163/85 (111) 98 97.8 08/07/24 12:45 Room Air* 0 21 Physical Exam Physical Examination General: Patient alert and oriented in person, place and time. Patient following commands. HEENT: Normocephalic, atraumatic, moist mucous membranes Respiratory/pulmonary: Clear lungs bilaterally, no associated crackles or wheezes. Cardiovascular: Normal heart sounds S1 and S2 with no associated murmurs Abdomen: Abdomen nondistended, there is mild tenderness to deep palpation generalized in the abdomen. no palpable masses. Extremities: There is no peripheral edema present at the lower extremities. Skin: No rashes or pruritus, there is no sacral edema present at this time. Neurological: Intact cranial nerves with no focal neurologic deficits Labs/Diagnostic Data Labs Test 08/07/24 11:40 08/07/24 11:37 Range/Units POC Glucose 110 H 70-106 mg/dl White Blood Count 8.4 4.4-10.8 10^3/uL Red Blood Count 3.59 L 4.5-5.90 10^6/uL Hemoglobin 10.9 L 13.5-17.5 g/dL Hematocrit 33.0 L 41.0-53.0 % Mean Corpuscular Volume 91.8 80.0-100.0 fL Mean Corpuscular Hemoglobin 30.4 28.0-32.0 pg Mean Corpuscular Hemoglobin Concent 33.2 32.0-36.0 g/dL Red Cell Distribution Width 16.8 H 11.8-14.3 % Platelet Count 173 140-450 10^3/uL Mean Platelet Volume 9.4 6.9-10.8 fL Neutrophils (%) (Auto) 70.1 37.0-80.0 % Lymphocytes (%) (Auto) 20.0 10.0-50.0 % Monocytes (%) (Auto) 9.2 0.0-12.0 % Eosinophils (%) (Auto) 0.3 0.0-7.0 % Basophils (%) (Auto) 0.4 0.0-2.0 % Neutrophils # (Auto) 5.9 1.6-8.6 10 ^3/uL Lymphocytes # (Auto) 1.7 0.4-5.4 10 ^3/uL Monocytes # (Auto) 0.8 0-1.3 10 ^3/uL Eosinophils # (Auto) 0 0-0.8 10 ^3/uL Basophils # (Auto) 0 0-0.2 10 ^3/uL Nucleated Red Blood Cells 0.0 % Sodium Level 134 L 136-145 mmol/L Potassium Level 5.7 *H 3.5-5.1 mmol/L Chloride Level 93 L 98-107 mmol/L Carbon Dioxide Level 26 20-31 mmol/L Anion Gap 15 5-15 Blood Urea Nitrogen 64 H 9-23 mg/dL Creatinine 7.62 H 0.700-1.30 mg/dL Glomerular Filtration Rate Calc 7 >90 mL/min BUN/Creatinine Ratio 8.4 L 10.0-20.0 Serum Glucose 101 74-106 mg/dL Calcium Level 9.6 8.7-10.4 mg/dL Troponin I High Sensitivity 30 </=54 ng/L Assessment Assessment/plan ESRD on HD (Wednesday//Wednesday) Hyperkalemia Acute hypoxic respiratory failure likely in the setting of volume overload Primary hypertension Acute on chronic normocytic normochromic anemia Acute constipation Plan -Start Furosemide 40mg IV BID -Hyperkalemia protocol given in the ED, will repeat K levels -Schedule for HD tomorrow -Restart blood pressure meds per primary team -Laxatives per primary team for acute constipation -Monitor electrolytes closely -Will monitor BUN and Cr daily -Renal diet -Strict ins and outs -Order urine sodium, urine creatinine, urine protein to creatinine ratio, BNP Goals of care discussed with the patient at bedside for >25min, FULL CODE Plan discussed with Dr. Jama Addendum Patient seen and examined, plan discussed with resident. Agree with above, we will follow closely Plan discussed with: Patient, Spouse MARIALUISA LEONARD RESIDENT August 07, 2024 14:39 KINGSTON JAMA MD August 08, 2024 12:58
[2024-08-07] MEDS: DEXTROSE (50%) 50ML SYRG IV ONE (16:23)
[2024-08-07] MEDS: SODIUM BICARB 8.4% 50Meq/50ml SYR INJ IV ONE (16:23)
[2024-08-07] MEDS: CALCIUM GLUC 1,000mg/50ml-NS 50 ML IV ONE (16:24)
[2024-08-07] MEDS: InsuLIN REG 1unit/0.01ml Soln (100units/ml) IV ONE (16:27)
[2024-08-07] MEDS: FUROSEMIDE 20 MG/2 ML VIAL IV ONE (16:28)
[2024-08-07] MEDS: SODIUM ZIRCONIUM CYCL 10 GM PAK PO ONE (16:29)
[2024-08-07] MEDS: ONDANSETRON HCL 4 MG/2 ML VIAL IV ONE (16:49)
[2024-08-07 16:53] VITALS: PULSE 60; RESP 16; O2SAT 95
[2024-08-07] MEDS ORDERED: ONDANSETRON HCL 4 MG/2 ML VIAL IV PRN (19:30)
[2024-08-07] MEDS ORDERED: ACETAMINOPHEN 325 MG TAB PO PRN (19:30)
[2024-08-07 21:33] VITALS: PULSE 60; RESP 18; O2SAT 99
[2024-08-07 21:35] VITALS: BP 168/91; PULSE 60; RESP 18; TEMP 97.6; O2SAT 100
[2024-08-07 21:37] VITALS: PULSE 60; RESP 18; O2SAT 100
[2024-08-07] MEDS: FUROSEMIDE 40 MG/4 ML VIAL IV ONE (21:55)
[2024-08-07] MEDS: hydrALAZINE HCL 25 MG TAB PO SCH (21:56)
[2024-08-07] MEDS: METOPROLOL TARTRATE 50 MG TAB PO SCH (23:33)
[2024-08-08] VITALS (8 sets, daily range): BP systolic 131–163; BP diastolic 67–91; PULSE 53–61; RESP 15–18; TEMP 97.7–98.4; O2SAT 95–100
[2024-08-08] MEDS ORDERED: LOSA-535 PO (00:11)
[2024-08-08] MEDS ORDERED: HYD25TP TOP (00:11)
[2024-08-08] MEDS ORDERED: HYDR100T10 PO (00:11)
--- NOTE | 2024-08-08 04:58 | DVHHP2 ---
History of Present Illness Reason for Visit: Generalized weakness History of Present Illness 69-year-old male presents for evaluation of generalized weakness. Patient presents with a four day history of generalized weakness with associated shortness for breath, nausea, chest pressure. Denies fever or chills. No cough. Past Medical History End-stage renal disease, hypertension Past Surgical History Dialysis access Family History Noncontributory Smoke: No ALCOHOL: none Drugs: None Lives: with Family Review of Systems Review of Systems Review of systems are currently negative otherwise addressed in HPI. Allergies: Coded Allergies: NO KNOWN ALLERGIES (Unverified , 10/07/20) Medications Current Medications Medications Dose Ordered Sig/Noa Route Start Time Stop Time Status Last Admin Dose Admin Metoprolol Tartrate 50 mg BID PO 08/07/24 22:00 08/07/24 23:33 50 MG Hydralazine HCl 50 mg Q8HR PO 08/07/24 22:00 08/07/24 21:56 50 MG Sevelamer HCl 1,600 mg TIDWM PO 08/08/24 08:00 Amlodipine Besylate 10 mg DAILY PO 08/08/24 10:00 Clonidine HCl 0.1 mg Q6HP PRN PO 08/07/24 19:30 Ondansetron HCl 4 mg Q4HP PRN IV 08/07/24 19:30 Acetaminophen 650 mg Q6HP PRN PO 08/07/24 19:30 Exam Vital Signs Vital Signs Date Time Temp Pulse Resp B/P (MAP) Pulse Ox O2 Delivery O2 Flow Rate FiO2 08/08/24 00:33 59 152/80 08/07/24 21:37 18 100 Room Air* 0 21 08/07/24 21:36 98.0 98.0 Exam Gen: 69-year-old male in mild distress Skin: Warm, dry, normal color and texture, no rash. HEENT: Normocephalic atraumatic, mucous membranes moist and pink. Neck: Cervical and supraclavicular nodes normal without enlargement, trachea is midline, thyroid gland is normal without masses. Pulmonary: Clear to auscultation and percussion bilaterally. Cardiac: Regular rate and rhythm. No murmur Abdomen: Soft, nontender, nondistended, bowel sounds present all 4 quadrants, no guarding, no rigidity, no organomegaly. Extremities: No cyanosis, clubbing, no edema Neuro: Cranial nerves II through XII grossly intact, normal affect and speech, no focal motor deficits. Labs/Xrays ORDERING PHYSICIAN: WYATT KUMAR MD PROCEDURE(s): CXRP - CHEST PORTABLE REASON: sob ORDER NUMBER(s): [id number], ACCESSION NUMBER(s): [id number] CHEST RADIOGRAPH Indication: sob Technique: Single frontal view of the chest was obtained COMPARISON: XY CHEST XRAY 1 VIEW on DOS: 09/15/23, XY CHEST PORTABLE on DOS: 09/15/23, XY CHEST XRAY 1 VIEW on DOS: 09/15/23 FINDINGS: Lines and Tubes: Right central venous catheter in satisfactory position Lungs: Mild congestion Pleura: No effusion. No pneumothorax. Cardiomediastinal contours: Unremarkable Bones: Unremarkable IMPRESSION: Mild congestion Labs Test 08/07/24 16:38 08/07/24 16:19 08/07/24 11:37 Range/Units Potassium Level 5.0 3.5-5.1 mmol/L POC Glucose 122 H 70-106 mg/dl White Blood Count 8.4 4.4-10.8 10^3/uL Red Blood Count 3.59 L 4.5-5.90 10^6/uL Hemoglobin 10.9 L 13.5-17.5 g/dL Hematocrit 33.0 L 41.0-53.0 % Mean Corpuscular Volume 91.8 80.0-100.0 fL Mean Corpuscular Hemoglobin 30.4 28.0-32.0 pg Mean Corpuscular Hemoglobin Concent 33.2 32.0-36.0 g/dL Red Cell Distribution Width 16.8 H 11.8-14.3 % Platelet Count 173 140-450 10^3/uL Mean Platelet Volume 9.4 6.9-10.8 fL Neutrophils (%) (Auto) 70.1 37.0-80.0 % Lymphocytes (%) (Auto) 20.0 10.0-50.0 % Monocytes (%) (Auto) 9.2 0.0-12.0 % Eosinophils (%) (Auto) 0.3 0.0-7.0 % Basophils (%) (Auto) 0.4 0.0-2.0 % Neutrophils # (Auto) 5.9 1.6-8.6 10 ^3/uL Lymphocytes # (Auto) 1.7 0.4-5.4 10 ^3/uL Monocytes # (Auto) 0.8 0-1.3 10 ^3/uL Eosinophils # (Auto) 0 0-0.8 10 ^3/uL Basophils # (Auto) 0 0-0.2 10 ^3/uL Nucleated Red Blood Cells 0.0 % Sodium Level 134 L 136-145 mmol/L Chloride Level 93 L 98-107 mmol/L Carbon Dioxide Level 26 20-31 mmol/L Anion Gap 15 5-15 Blood Urea Nitrogen 64 H 9-23 mg/dL Creatinine 7.62 H 0.700-1.30 mg/dL Glomerular Filtration Rate Calc 7 >90 mL/min BUN/Creatinine Ratio 8.4 L 10.0-20.0 Serum Glucose 101 74-106 mg/dL Hemoglobin A1c 5.3 <5.7 % A1C Calcium Level 9.6 8.7-10.4 mg/dL Troponin I High Sensitivity 30 </=54 ng/L B-Type Natriuretic Peptide > 5000.00 0-100 pg/mL Triglycerides Level 95 < 150 mg/dL Cholesterol Level 125 < 200 mg/dL LDL Cholesterol 68 < 100 mg/dL HDL Cholesterol 37 L 40-59 mg/dL Assessment/Plan Assessment/Plan Assessment End-stage renal disease, dialysis dependent Hyperkalemia Accelerated hypertension Anemia of chronic disease Plan Admit the patient to [facility] to the hospitalist Nephrology consultation Repeat BNP Resume home medications Continue treatment per orders Plan discussed with: Patient My Orders Orders - SUSAN BOLAND AGACNP Procedure Category Date Status Time Metoprolol Tartrate PHA 08/07/24 In Process Tablet (Lopressor Ta 22:00 Hydralazine Hcl PHA 08/07/24 In Process Tablet (Apresoline 22:00 Sevelamer (Renagel) PHA 08/08/24 In Process 08:00 Amlodipine Tablet PHA 08/08/24 In Process (Norvasc Tablet) 10:00 Clonidine Hcl Tablet PHA 08/07/24 In Process (Catapres Tablet) 19:30 Basic Metabolic Panel LAB 08/08/24 Logged 04:00 Admit ADMIT 08/07/24 Transmitted 19:30 Ondansetron Hcl PHA 08/07/24 In Process (Zofran) 19:30 Condition: Stable MARIAH 08/07/24 In Process 19:30 Acetaminophen Tablet PHA 08/07/24 In Process (Tylenol Tablet) 19:30 Bedrest With Bathroom MARIAH 08/07/24 In Process Privileg 19:30 Echo 2d Mode Cardiac US 08/07/24 Logged DOP 19:30 Date of Service: August 07, 2024 Billing Provider: SUSAN BOLAND Common Visit Codes: [id number] INP/OBS CARE (HIGH) SUSAN BOLAND August 08, 2024 04:58
[2024-08-08] MEDS ORDERED: SODIUM CHL 0.9% 1000 ML BAG XX ONE (07:00)
[2024-08-08 07:36] LABS: Anion Gap 14 (5-15); Carbon Dioxide 29 mmol/L (20-31)
[2024-08-08 07:37] LABS: Calcium 9.4 mg/dL (8.7-10.4)
[2024-08-08 07:42] LABS: BUN/Creatinine Ratio 8.8 (10.0-20.0); Glucose 101 mg/dL (74-106)
[2024-08-08 07:44] LABS: Chloride 92 mmol/L (98-107); Sodium 135 mmol/L (136-145)
[2024-08-08 07:48] LABS: Blood Urea Nitrogen 80 mg/dL (9-23)
[2024-08-08] MEDS: SEVELAMER 800 MG TAB PO SCH (08:00)
--- NOTE | 2024-08-08 08:03 | DVHPN2 ---
Progress Note Date Seen: August 08, 2024 Resident Creating Document: MARIALUISA LEONARD RESIDENT Has the PT tested + for MRSA If YES, has PT been informed?: No Medical Necessity Reason Pt with a Central, PICC or Fol: No Subjective Review of Systems Patient seen and examined at bedside. Patient is alert and oriented in person, place and time. Today, patient still reports lower back pain but states that the abdominal discomfort has slightly improved compared to admission. The patient also reported an episode of shortness of breaths this morning but resolved suddenly. The patient is currently on room air saturating above 95%. Today creatinine increased to 9.09 and BUN is 80. Patient will be scheduled for hemodialysis today. We will continue following up creatinine and BUN closely as well as electrolytes. Patient denied fever/chills, chest pain, confusion or any other symptoms at this time. Patient still complaining of back pain for which we will perform a lumbar x-ray to rule out any possible infectious etiology or compression fracture. We will also order blood cultures. ROS Constitutional: Reports fatigue and decreased energy. Denies weight loss, fever and chills. HEENT: Denies changes in vision and hearing. Respiratory: Denies shortness of breath and cough Cardiovascular: Denies chest discomfort or palpitations GI: Denies abdominal pain, nausea, vomiting and diarrhea. : Denies dysuria and urinary frequency. Musculoskeletal: Reports lower back pain. Denies myalgias and joint pain Skin: Denies rash and pruritus. Neurological: Denies dizziness, headache, vision or hearing problems Objective vital signs Vital Sign Date Time Temp Pulse Resp B/P (MAP) Pulse Ox O2 Delivery O2 Flow Rate FiO2 08/08/24 05:00 98.4 54 18 162/90 (114) 99 98.4 08/07/24 21:37 Room Air* 0 21 Total Intake and Output 08/07/24 08/07/24 08/08/24 15:00 23:00 07:00 Intake Total 120 ml 800 ml Balance 120 ml 800 ml medications Current Medications Medications Dose Ordered Sig/Noa Route Start Time Stop Time Status Last Admin Dose Admin Metoprolol Tartrate 50 mg BID PO 08/07/24 22:00 08/07/24 23:33 50 MG Hydralazine HCl 50 mg Q8HR PO 08/07/24 22:00 08/08/24 04:59 50 MG Sevelamer HCl 1,600 mg TIDWM PO 08/08/24 08:00 Amlodipine Besylate 10 mg DAILY PO 08/08/24 10:00 Clonidine HCl 0.1 mg Q6HP PRN PO 08/07/24 19:30 Ondansetron HCl 4 mg Q4HP PRN IV 08/07/24 19:30 Acetaminophen 650 mg Q6HP PRN PO 08/07/24 19:30 Examination Physical Examination General: Patient alert and oriented in person, place and time. Patient following commands. HEENT: Normocephalic, atraumatic, moist mucous membranes Respiratory/pulmonary: There is mild decrease of breath sounds on lung base and there are bilateral mild crackles in lung bases. No wheezes at this time. Cardiovascular: Normal heart sounds S1 and S2 with no associated murmurs Abdomen: Abdomen nondistended, there is mild tenderness to deep palpation generalized in the abdomen. no palpable masses. Extremities: There is no peripheral edema present at the lower extremities. Skin: No rashes or pruritus, there is no sacral edema present at this time. Neurological: Intact cranial nerves with no focal neurologic deficits laboratory and microbiology Laboratory Tests 08/08/24 06:51 08/07/24 11:37 Test 08/08/24 06:51 Range/Units Serum Glucose 101 74-106 mg/dL Problem List/Assessment/Plan Problem List/Assessment/Plan Assessment/plan ESRD on HD (Wednesday//Wednesday) Hyperkalemia Acute hypoxic respiratory failure likely in the setting of volume overload Primary hypertension chronic normocytic normochromic anemia Acute constipation Acute back pain R/O compression fracture or vertebral osteomyelitis Plan -Continue Furosemide 40mg IV BID -Hyperkalemia protocol given in the ED, will repeat K levels -hemodialysis performed today which removed 4.5 L of fluid -Lumbar X-ray to R/O compression fracture,, consider MRI of lumbar spine to R/O Osteomyelitis -Ordered blood culture Goals of care discussed with the patient at bedside for >25min, FULL CODE Plan discussed with Dr. Salgado Addendum Patient seen and examined, plan discussed with resident. Agree with above, we will follow closely Plan discussed with: Patient My Orders My Orders Orders - MARIALUISA LEONARD RESIDENT Procedure Category Date Status Time Urinalysis LAB 08/07/24 Logged 14:03 Urine Sodium LAB 08/07/24 Logged 14:03 Urine LAB 08/07/24 Logged Protein/Creatinine Renal DIET 08/07/24 Transmitted Standard(2gna,3gk,Lopho) Dinner Strict I & O MARIAH 08/07/24 In Process 14:36 MARIALUISA LEONARD August 08, 2024 08:03 KINGSTON SALGADO MD August 08, 2024 13:32
--- NOTE | 2024-08-08 08:56 | ECG ---
[facility] Test Date: 2024-08-07 Test Time: 11:39:33 Pat Name: MASON LOPEZ Department: ED Room: 0295 A Gender: M Client Business Manager: NICA HEART : 1955 Requested By: WYATT KUMAR Order Number: [id number] Reading MD: Ham Landry Measurements Intervals [place] Rate: 60 P: 81 HI: 188 QRS: 80 QRSD: 146 T: 48 QT: 512 QTc: 512 Interpretive Statements Sinus rhythm Left atrial enlargement Right bundle branch block Electronically Signed On 08-09-2024 12:45:50 PDT by Ham Landry Please click the below link to view image of tracing.
[2024-08-08] MEDS: amLODIPine BESYLATE 5 MG TAB PO SCH (09:24)
--- NOTE | 2024-08-08 14:40 | DVH ---
INDICATION: R/O lumbar spine infection or compression fracture TECHNIQUE: Frontal and lateral views of the lumbar spine were obtained. COMPARISON: None FINDINGS: . There are no fractures or subluxations. Vertebral body heights and disc spaces are well maintained. Paravertebral soft tissues are unremarkable. IMPRESSION: Multilevel degenerative changes of the facet arthropathy at L4-L5 through L5-S1 causing moderate neur al foraminal and spinal canal stenosis.
--- NOTE | 2024-08-08 15:57 | DVHPN2 ---
Subjective Seen and examined at bedside, spouse present at bedside, feeling better but still short of breath. Titrate oxygen off. Will get Pelvic Xray as patient is c/o pelvic pain. Changes from previous H/P or p: No Changes Objective Vitals Vital Signs Date Time Temp Pulse Resp B/P (MAP) Pulse Ox O2 Delivery O2 Flow Rate FiO2 08/08/24 14:11 143/71 08/08/24 14:09 54 08/08/24 13:00 97.7 18 98 97.7 08/08/24 08:10 Nasal Cannula* 2 28 Intake/Output Intake and Output 08/08/24 07:00 Intake Total 920 ml Balance 920 ml Intake Oral 800 ml IV Total 120 ml Exam Gen: in bed NAD Chest: Dialysis Catheter + Cvs: N S1/S2, RRR Resp: BLAE Abd: Soft, NT, BS+ Talent Development Analyst: AAO x 4 Medications Current Medications Medications Dose Ordered Sig/Noa Route Start Time Stop Time Status Last Admin Dose Admin Metoprolol Tartrate 50 mg BID PO 08/07/24 22:00 08/07/24 23:33 50 MG Hydralazine HCl 50 mg Q8HR PO 08/07/24 22:00 08/08/24 14:11 50 MG Sevelamer HCl 1,600 mg TIDWM PO 08/08/24 08:00 08/08/24 12:04 1,600 MG Amlodipine Besylate 10 mg DAILY PO 08/08/24 10:00 08/08/24 12:05 10 MG Clonidine HCl 0.1 mg Q6HP PRN PO 08/07/24 19:30 Ondansetron HCl 4 mg Q4HP PRN IV 08/07/24 19:30 Acetaminophen 650 mg Q6HP PRN PO 08/07/24 19:30 Laboratory Results Laboratory Tests 08/07/24 11:37 08/08/24 06:51 Chemistry Test 08/08/24 06:51 Calcium Level 9.4 mg/dL (8.7-10.4) Assessment/Plan Assessment/Plan # Hyperkalemia - Cont Hemodialysis # ESRD on HD # Pulm HTN # Pelvic Pain - Pelvic Xray - Ortho Consult # Goals of care discussion >18 mins FULL CODE critical care time 38 mins Plan discussed with: Patient, Spouse My Orders Orders - TATYANA ZHENG MD Procedure Category Date Status Time * Orthopedic Consult CONS 08/08/24 Verified 15:43 Pelvis Ap XY 08/08/24 Verified 15:43 Basic Metabolic Panel LAB 08/09/24 Verified 04:00 Date of Service: August 08, 2024 Billing Provider: TATYANA ZHENG MD Common Visit Codes: [id number] CARE 30-74 MIN TATYANA ZHENG MD August 08, 2024 15:57
[2024-08-08] MEDS: LACTULOSE 20Gm/30ML SOLN PO ONE (16:19)
--- NOTE | 2024-08-08 17:36 | DVH ---
Indication: Pelvic Pain Technique: 2 views pelvis Comparison: None FINDINGS/IMPRESSION: No radiographic evidence for acute fracture or dislocation. [id number] degenerate changes bila teral hips. [id number] bilateral sacroiliac degenerative joint disease. Nuno hutchison
--- NOTE | 2024-08-08 19:12 | DVHINCON2 ---
Consult Note Consult Consult Note Consult Requested By: Hospitalist Team Reason for Consult: Evaluation of lower back pain in patient with ESRD on dialysis --- HPI: The patient is an 69-year-old male with a history of end-stage renal disease (ESRD) on dialysis, inpatient. He was referred by the hospitalist service for evaluation of lower back pain. The patient denies any recent injury, trauma, or falls. He describes the pain as a band-like across the lower back, primarily over the sacroiliac (SI) joints and L5�S1 region. The pain is most prominent when getting out of bed and taking the first few steps; it then improves with ambulation. The patient also reports a recent history of constipation, which is being managed with laxatives, though response has been suboptimal. He denies fever, chills, numbness, tingling, or weakness in the lower extremities. No bowel or bladder incontinence reported. He has no significant past history of chronic back pain. --- Imaging: Lumbar and pelvic X-rays were reviewed and show: Mild degenerative changes of the bilateral hips Degenerative changes in the lumbar spine and SI joints No acute fractures or dislocations noted --- Exam: Inspection: Normal posture, no swelling or deformity Palpation: Tenderness over bilateral SI joints Mild tenderness over L2�S1 midline and paraspinal areas No groin tenderness Range of Motion: grossly intact for lumbar and Hips Neurologic: SLR test: Negative bilaterally Log roll test: Negative Lower extremity strength and sensation: Grossly intact Gait: patient able to walk with no assistance well during my exam without back pain worsening --- Assessment: Lower back and SI joint pain in the setting of ESRD on dialysis with degenerative changes. No neurologic red flags or signs of acute instability. At this time, my concern is for sacroiliac (SI) joint pain or dysfunction and lower back pain without radiculopathy. Additionally, suboptimal relief of constipation may be a contributing factor to the patient�s current discomfort. --- Plan: 1. Topical pain control: Initiate Lidocaine 5% patch, apply one patch over the affected area every 12 hours, on/off rotation. Please get its use cleared by Nephrology (Bed side Nurse agreed) 2. If pain persists or worsens: Consider trial of Gabapentin 100 mg at bedtime, pending clearance by nephrology due to renal considerations. 3. Fall risk discussed with patient and bedside nurse. Gabapentin not to be ad ministered until cleared by nephrology. 4. Mobility recommendation: Patient currently only gets out of bed twice per day. He would benefit from increased mobility and physical activity, as prolonged bed rest may worsen stiffness and SI joint discomfort. Recommend nursing or PT assist patient with progressive ambulation during the day. 5. Reinforce ongoing bowel regimen with the primary team, as constipation may be exacerbating low back discomfort. 6. No indication for advanced imaging or surgical intervention at this time. 7. Orthopedic team available for re-evaluation if symptoms progress or new findings develop. --- Disposition: Continue conservative management. Notify orthopedic team for any new neurologic signs, worsening symptoms, or other concerns. Plan discussed with: Patient, Spouse, Other (bedside Nurse) Visit Coding Surgery Date of Service if different f: August 08, 2024 Billing Provider: SABAS LEMONS Surgery Visit Codes: 91518 - INP CONSULT <55 MIN SABAS LEMONS August 08, 2024 19:12
[2024-08-08] MEDS: LIDOCAINE 5% TOPICAL PATCH TOP SCH (23:07)
[2024-08-08] MEDS: cloNIDine HCL 0.1 MG TAB PO PRN (23:24)
[2024-08-09 01:00] VITALS: BP 130/59; PULSE 60; RESP 16; O2SAT 100
[2024-08-09 05:00] VITALS: BP 156/71; PULSE 53; RESP 18; TEMP 98.4; O2SAT 100
[2024-08-09 07:47] LABS: Potassium 4.1 mmol/L (3.5-5.1); Sodium 138 mmol/L (136-145)
[2024-08-09 07:48] LABS: Anion Gap 14 (5-15); Calcium 9.5 mg/dL (8.7-10.4); Carbon Dioxide 29 mmol/L (20-31)
[2024-08-09 07:53] LABS: BUN/Creatinine Ratio 7.4 (10.0-20.0); Glucose 86 mg/dL (74-106)
[2024-08-09 07:56] LABS: Blood Urea Nitrogen 58 mg/dL (9-23); Chloride 95 mmol/L (98-107)
[2024-08-09 09:00] VITALS: BP 145/82; PULSE 54; RESP 17; TEMP 98.2; O2SAT 96
--- NOTE | 2024-08-09 11:52 | DVHPN2 ---
Progress Note Date Seen: August 09, 2024 Has the PT tested + for MRSA If YES, has PT been informed?: No Medical Necessity Reason Pt with a Central, PICC or Fol: No Subjective Patient reports: No new complaints Review of Systems: MSK:Abnormal Objective vital signs Vital Sign Date Time Temp Pulse Resp B/P (MAP) Pulse Ox O2 Delivery O2 Flow Rate FiO2 08/09/24 09:00 98.2 54 17 145/82 (103) 96 98.2 08/09/24 08:10 Nasal Cannula* 2 28 Total Intake and Output 08/08/24 08/08/24 08/09/24 15:00 23:00 07:00 Intake Total 450 ml 400 ml Output Total 0 ml 50 ml Balance 450 ml 350 ml medications Current Medications Medications Dose Ordered Sig/Noa Route Start Time Stop Time Status Last Admin Dose Admin Metoprolol Tartrate 50 mg BID PO 08/07/24 22:00 08/08/24 21:50 50 MG Hydralazine HCl 50 mg Q8HR PO 08/07/24 22:00 08/09/24 05:45 50 MG Sevelamer HCl 1,600 mg TIDWM PO 08/08/24 08:00 08/09/24 11:32 1,600 MG Amlodipine Besylate 10 mg DAILY PO 08/08/24 10:00 08/09/24 08:57 10 MG Clonidine HCl 0.1 mg Q6HP PRN PO 08/07/24 19:30 08/08/24 23:24 0.1 MG Ondansetron HCl 4 mg Q4HP PRN IV 08/07/24 19:30 Acetaminophen 650 mg Q6HP PRN PO 08/07/24 19:30 Lidocaine 1 patch HS TOP 08/09/24 22:00 Examination: GENERAL:Normal, HEENT:Normal, NECK:Normal, LUNGS:Normal, CVS:Normal, ABDOMEN:Normal, MSK:Normal, SKIN:Normal, NEURO:Normal, :Normal laboratory and microbiology Laboratory Tests 08/09/24 06:31 08/07/24 11:37 Test 08/09/24 06:31 Range/Units Serum Glucose 86 74-106 mg/dL Problem List/Assessment/Plan Problem List/Assessment/Plan Assessment/plan ESRD on HD (Wednesday//Wednesday) Hyperkalemia Acute hypoxic respiratory failure likely in the setting of volume overload Primary hypertension chronic normocytic normochromic anemia Acute constipation Acute back pain R/O compression fracture or vertebral osteomyelitis Plan -hemodialysis tomorrow if still here otherwise resume outpatient schedule Orthopedic consulted Blood cultures have been ordered Plan discussed with: Patient, Spouse KINGSTON JAMA MD August 09, 2024 11:52
[2024-08-09 13:00] VITALS: BP 138/76; PULSE 54; RESP 18; TEMP 98.3; O2SAT 98
--- NOTE | 2024-08-09 16:20 | DVHSR ---
APPROVED REPORT EXAM: Two-dimensional and M-mode echocardiogram with Doppler and color Doppler. Blood Pressure: 162/90 mmHg INDICATION EF RISK FACTORS Height: 5'6", Weight: 158 DIMENSIONS LVDd5.6 (3.8-5.7cm)LA (2D)4.8 (1.9-4.0cm)Aortic Root3.3 (2.0-3.7cm) LVDs4.2 (2.5-4.0cm)LA (MM) (1.9-4.0cm)Aortic Cusp Exc1.8 (1.5-2.0cm) EF (%) 47.0 (55-70%)Rt. Atrium4.0 (1.9-4.0cm)Asc. Aorta3.6 cm IVSd1.3 (0.7-1.1cm)RV (D)3.7 (1.8-2.4cm) PWd1.0 (0.7-1.1cm) Mitral Valve MitralMitral Stenosis E wave0.80m/sMV Mean GR.mmHg A wave0.38m/sMV Peak GR.mmHg E/A ratio2.12D MVAcm2 DECEL [id number] 1/2 [place] Aortic Valve Aortic ValveAortic Stenosis V10.96m/[place] Mean GR.4mmHg V21.40m/[place] Peak GR.8mmHg LVOT Diameter2.2 (1.8-2.4cm)Doppler AVA2.61cm2 Pulmonic Valve V20.91m/s Tricuspid Valve TR Velocity2.32m/s [id number] Conclusion Technically good study. Atrial fibrillation. Left atrial enlargement with mild aortic root enlargement. Dilated sinuses of Valsalva. Valves appear to be structurally normal. Left ventricular systolic function is diminished. EF is approximately 35-40% with inferior hypokines is predominating global hypokinesis. Right ventricular function is moderately diminished. Doppler reveals moderate pulmonic insufficiency. Small pericardial effusion. Large pleural effusion. No intracardiac masses thrombi or vegetations discernible.
[2024-08-09 17:00] VITALS: BP 133/74; PULSE 59; RESP 18; TEMP 97.9; O2SAT 94
--- NOTE | 2024-08-09 18:25 | DVHPN2 ---
Subjective Seen and examined at bedside, spouse present at bedside, Will get Xray chest in AM. Possible DC in AM Changes from previous H/P or p: No Changes Objective Vitals Vital Signs Date Time Temp Pulse Resp B/P (MAP) Pulse Ox O2 Delivery O2 Flow Rate FiO2 08/09/24 17:00 97.9 59 18 133/74 (93) 94 97.9 08/09/24 08:10 Nasal Cannula* 2 28 Intake/Output Intake and Output 08/09/24 07:00 Intake Total 850 ml Output Total 50 ml Balance 800 ml Intake Oral 850 ml Output Urine Total 50 ml Exam Gen: in bed NAD Chest: Dialysis Catheter + Cvs: N S1/S2, RRR Resp: BLAE Abd: Soft, NT, BS+ Engineer Internship: AAO x 4 Medications Current Medications Medications Dose Ordered Sig/Noa Route Start Time Stop Time Status Last Admin Dose Admin Metoprolol Tartrate 50 mg BID PO 08/07/24 22:00 08/08/24 21:50 50 MG Hydralazine HCl 50 mg Q8HR PO 08/07/24 22:00 08/09/24 14:40 50 MG Sevelamer HCl 1,600 mg TIDWM PO 08/08/24 08:00 08/09/24 16:48 1,600 MG Amlodipine Besylate 10 mg DAILY PO 08/08/24 10:00 08/09/24 08:57 10 MG Clonidine HCl 0.1 mg Q6HP PRN PO 08/07/24 19:30 08/08/24 23:24 0.1 MG Ondansetron HCl 4 mg Q4HP PRN IV 08/07/24 19:30 Acetaminophen 650 mg Q6HP PRN PO 08/07/24 19:30 Lidocaine 1 patch HS TOP 08/09/24 22:00 Laboratory Results Laboratory Tests 08/07/24 11:37 08/09/24 06:31 Chemistry Test 08/09/24 06:31 Calcium Level 9.5 mg/dL (8.7-10.4) Microbiology Microbiology Date/Time Source Procedure Growth Status 08/08/24 13:33 Blood Blood Culture - Preliminary NO GROWTH AFTER 24 HOURS OF INCUBATION. Resulted Assessment/Plan Assessment/Plan # Hyperkalemia - Cont Hemodialysis # ESRD on HD # Pulm HTN # Pelvic Pain - Pelvic Xray - Ortho Consult # Pleural Effusion on ECHO - Will get Chest Xray # Goals of care discussion >18 mins FULL CODE Plan discussed with: Patient Date of Service: August 09, 2024 Billing Provider: TATYANA ZHENG MD Common Visit Codes: [id number] INP/OBS CARE(MOD) TATYANA ZHENG MD August 09, 2024 18:25
[2024-08-09 21:00] VITALS: BP 150/77; PULSE 62; RESP 17; TEMP 98; O2SAT 98
[2024-08-09] MEDS: LIDOCAINE 5% TOPICAL PATCH TOP SCH (22:36)
[2024-08-10 01:00] VITALS: BP 155/75; PULSE 60; RESP 17; TEMP 98.6; O2SAT 100
[2024-08-10 05:00] VITALS: BP 144/87; PULSE 57; RESP 16; TEMP 98.2; O2SAT 100
--- NOTE | 2024-08-10 06:25 | DVH ---
EXAM: XR Chest, 1 View CLINICAL INDICATION: Pleural Effusion TECHNIQUE: Frontal view of the chest. COMPARISON: None FINDINGS: LUNGS AND PLEURAL SPACES: See below. HEART: Cardiomegaly with mild congestion. MEDIASTINUM: Unremarkable. Normal mediastinal contour. BONES/JOINTS: Unremarkable. No acute fracture. TUBES, LINES AND DEVICES: Right internal jugular central venous catheter tip in the superior vena c lorenza. OTHER FINDINGS: . . IMPRESSION: Cardiomegaly with mild congestion.
[2024-08-10 09:00] VITALS: BP 161/85; PULSE 61; RESP 17; TEMP 98.4; O2SAT 97
[2024-08-10 13:00] VITALS: BP 190/97; PULSE 51; RESP 17; TEMP 97.9
[2024-08-10] MEDS ORDERED: HEPARIN 1,000 UNITS/ml 1ML VIAL IV ONE (13:15)
--- NOTE | 2024-08-10 15:48 | DVHDS2 ---
Discharge Summary Date of Admission August 07, 2024 at 19:30 Date of Discharge: August 10, 2024 Labs/Diagnostic Data: Laboratory Results Test 08/09/24 06:31 08/07/24 16:19 08/07/24 11:37 Sodium Level 138 mmol/L (136-145) Potassium Level 4.1 mmol/L (3.5-5.1) Chloride Level 95 mmol/L (98-107) Carbon Dioxide Level 29 mmol/L (20-31) Anion Gap 14 (5-15) Blood Urea Nitrogen 58 mg/dL (9-23) Creatinine 7.83 mg/dL (0.700-1.30) Glomerular Filtration Rate Calc 7 mL/min (>90) BUN/Creatinine Ratio 7.4 (10.0-20.0) Serum Glucose 86 mg/dL (74-106) Calcium Level 9.5 mg/dL (8.7-10.4) POC Glucose 122 mg/dl (70-106) White Blood Count 8.4 10^3/uL (4.4-10.8) Red Blood Count 3.59 10^6/uL (4.5-5.90) Hemoglobin 10.9 g/dL (13.5-17.5) Hematocrit 33.0 % (41.0-53.0) Mean Corpuscular Volume 91.8 fL (80.0-100.0) Mean Corpuscular Hemoglobin 30.4 pg (28.0-32.0) Mean Corpuscular Hemoglobin Concent 33.2 g/dL (32.0-36.0) Red Cell Distribution Width 16.8 % (11.8-14.3) Platelet Count 173 10^3/uL (140-450) Mean Platelet Volume 9.4 fL (6.9-10.8) Neutrophils (%) (Auto) 70.1 % (37.0-80.0) Lymphocytes (%) (Auto) 20.0 % (10.0-50.0) Monocytes (%) (Auto) 9.2 % (0.0-12.0) Eosinophils (%) (Auto) 0.3 % (0.0-7.0) Basophils (%) (Auto) 0.4 % (0.0-2.0) Neutrophils # (Auto) 5.9 10 ^3/uL (1.6-8.6) Lymphocytes # (Auto) 1.7 10 ^3/uL (0.4-5.4) Monocytes # (Auto) 0.8 10 ^3/uL (0-1.3) Eosinophils # (Auto) 0 10 ^3/uL (0-0.8) Basophils # (Auto) 0 10 ^3/uL (0-0.2) Nucleated Red Blood Cells 0.0 % Hemoglobin A1c 5.3 % A1C (<5.7) Troponin I High Sensitivity 30 ng/L (</=54) B-Type Natriuretic Peptide > 5000.00 pg/mL (0-100) Triglycerides Level 95 mg/dL (< 150) Cholesterol Level 125 mg/dL (< 200) LDL Cholesterol 68 mg/dL (< 100) HDL Cholesterol 37 mg/dL (40-59) Other Laboratory Tests 08/09/24 06:31 08/07/24 11:37 Brief Hx & Hospital Course: This is a 69-year-old male with past medical history of hypertension and end- stage renal disease on hemodialysis on (Wednesday//Wednesday), patient last hemodialysis session was performed last Wednesday. Patient presented to the ED with chief complaint of generalized weakness and shortness of breaths that has been going on for the past three weeks. The patient states that in the past three weeks he has been feeling very weak with shortness of breaths that usually wakes him up stitchdowns toe former at 4:00 a.m.. The patient also reports associated low back pain and generalized abdominal tenderness that usually gets worse after defecation. Patient admits that recently he has been suffering from constipation and last bowel movement was three days ago. Admitted and got Hemodialysis. Patient needs a Cardiac workup as outpatient Operations or Procedures APPROVED REPORT EXAM: Two-dimensional and M-mode echocardiogram with Doppler and color Doppler. Blood Pressure: 162/90 mmHg INDICATION EF RISK FACTORS Height: 5'6", Weight: 158 DIMENSIONS LVDd 5.6 (3.8-5.7cm) LA (2D) 4.8 (1.9-4.0cm) Aortic Root 3.3 (2.0- 3.7cm) LVDs 4.2 (2.5-4.0cm) LA (MM) (1.9-4.0cm) Aortic Cusp Exc 1.8 (1.5- 2.0cm) EF (%) 47.0 (55-70%) Rt. Atrium 4.0 (1.9-4.0cm) Asc. Aorta 3.6 cm IVSd 1.3 (0.7-1.1cm) RV (D) 3.7 (1.8-2.4cm) PWd 1.0 (0.7-1.1cm) Mitral Valve Mitral Mitral Stenosis E wave 0.80m/s MV Mean GR. mmHg A wave 0.38m/s MV Peak GR. mmHg E/A ratio 2.1 2D MVA cm2 DECEL Time 266ms PRESS 1/2 Time ms Aortic Valve Aortic Valve Aortic Stenosis V1 0.96m/s AO Mean GR. 4mmHg V2 1.40m/s AO Peak GR. 8mmHg LVOT Diameter 2.2 (1.8-2.4cm) Doppler ORQUIDEA 2.61cm2 Pulmonic Valve V2 0.91m/s Tricuspid Valve TR Velocity 2.32m/s RVSP 25mmHg Conclusion Technically good study. Atrial fibrillation. Left atrial enlargement with mild aortic root enlargement. Dilated sinuses of Valsalva. Valves appear to be structurally normal. Left ventricular systolic function is diminished. EF is approximately 35-40% with inferior hypokinesis predominating global hypokinesis. Right ventricular function is moderately diminished. Doppler reveals moderate pulmonic insufficiency. Small pericardial effusion. Large pleural effusion. No intracardiac masses thrombi or vegetations discernible. Final Diagnosis/Problems List # Hyperkalemia - Cont Hemodialysis # ESRD on HD # Atrial fibrillation # Pulm HTN # Pelvic Pain - Pelvic Xray - Ortho Consult # Pleural Effusion on ECHO # Goals of care discussion >18 mins FULL CODE Discharge Disposition: Home Discharge Instruct/Medications Diet: Renal Activity: Light activity Follow Up/Referral: DR. ANAND Discharge Statement: "Patient was advised to return to the ER or call 911 if any headaches, dizziness, shortness of breath, chest pain, abdominal pain, bleeding, fevers, or worsening of medical condition. Patient was counseled about treatment plan, medications, possible side effects, patient�verbalized understanding. All questions were answered to the best of my ability. This discharge took greater then 30 minutes in planning, reviewing documentation, counseling the patient, and discussing with other team members." ASSESSMENT ASSESSMENT Assessment Date of Service: August 10, 2024 Billing Provider: TATYANA ZHENG MD Common Visit Codes: [id number]/OBS DISCH DAY >30min TATYANA ZHENG MD August 10, 2024 15:48
[2024-08-10 17:00] VITALS: BP 181/96; PULSE 59; RESP 17; TEMP 98.2; O2SAT 99
[2024-08-10 17:03] VITALS: BP 170/82; PULSE 56; RESP 18; TEMP 98.4; O2SAT 97
--- NOTE | 2024-08-10 20:32 | DVHPN2 ---
Progress Note Date Seen: August 10, 2024 Has the PT tested + for MRSA If YES, has PT been informed?: No Medical Necessity Reason Pt with a Central, PICC or Fol: No Subjective Patient reports: No new complaints Objective vital signs Vital Sign Date Time Temp Pulse Resp B/P (MAP) Pulse Ox O2 Delivery O2 Flow Rate FiO2 08/10/24 17:03 98.4 56 18 97 08/10/24 17:00 181/96 (124) 08/10/24 08:00 Nasal Cannula* 2 28 Total Intake and Output 08/09/24 08/09/24 08/10/24 15:00 23:00 07:00 Intake Total 494 ml 0 ml Output Total 50 ml 310 ml Balance 444 ml -310 ml laboratory and microbiology Laboratory Tests 08/09/24 06:31 08/07/24 11:37 Test 08/09/24 06:31 Range/Units Serum Glucose 86 74-106 mg/dL Microbiology Date/Time Source Procedure Growth Status 08/08/24 13:33 Blood Blood Culture - Preliminary NO GROWTH AFTER 48 HOURS OF INCUBATION. Resulted Problem List/Assessment/Plan Problem List/Assessment/Plan Assessment/plan ESRD on HD (Wednesday//Wednesday) Hyperkalemia Acute hypoxic respiratory failure likely in the setting of volume overload Primary hypertension chronic normocytic normochromic anemia Acute constipation Acute back pain R/O compression fracture or vertebral osteomyelitis Plan -hemodialysis today Blood cultures have been ordered NGTD 2 days Plan discussed with: Patient, Spouse KINGSTON JAMA MD August 10, 2024 20:32
== END 2024-08-10 17:31 | disposition home or self-care (01) | DRG 640 ==
LOC: ER 10:49 → OVERFLOW 19:30 → WEST WING 21:35
PROVIDERS: ADMIT Internal Medicine; ATTEND Internal Medicine
PROC: 5A1D70Z Performance of Urinary Filtration, Intermittent, Less than 6 Hours Per Day (ICD-10-PCS; principal; 2024-08-08)
DX: E87.5 Hyperkalemia (principal); J96.01 Acute respiratory failure with hypoxia; N18.6 End stage renal disease; J90 Pleural effusion, not elsewhere classified; I31.39 Other pericardial effusion (noninflammatory); I12.0 Hypertensive chronic kidney disease with stage 5 chronic kidney disease or end stage renal disease; D63.8 Anemia in other chronic diseases classified elsewhere; I27.20 Pulmonary hypertension, unspecified; K59.00 Constipation, unspecified; M54.50 Low back pain, unspecified; I48.91 Unspecified atrial fibrillation; I16.0 Hypertensive urgency; D63.1 Anemia in chronic kidney disease; Z79.899 Other long term (current) drug therapy; Z83.3 Family history of diabetes mellitus; Z82.49 Family history of ischemic heart disease and other diseases of the circulatory system; Z99.2 Dependence on renal dialysis; Z87.891 Personal history of nicotine dependence
CPT/HCPCS: 36415; 71045; 71046; 72100; 72170; 80048; 80061; 82962; 83036; 83880; 84132; 84484; 85025; 87040; 90935; 93005; 93306; 94640; 96374; 96375; 99291; G0378; J1815

== ENCOUNTER 2025-02-10 01:11 | Emergency (ER) | payer MEDICAID, MEDICARE ==
[~2025-02-10] VITALS: Ht 162.6 cm; Wt 77.2 kg
[2025-02-10 01:11] VITALS: TEMP 98.1
[~2025-02-10 01:11] MED LIST changes: +HYD25TP TOP; +HYDR100T10 PO; +LOSA-535 PO
--- NOTE | 2025-02-10 02:29 | ED.PDOC ---
HPI (NEURO) HPI Comments PT PRESENTS TO ED FOR CC OF HEADACHE X 1 DAY, DESCRIBED R SIDED PRESSURE. NO DEFICITS NOTED. DENIES DIZZINESS. REPORTS HX OF ESRD AND HYPERTENSION. UPON ARRIVAL, PT HIS NORMOTENSIVE. DENIES NAUSEA, VOMITING, VISION CHANGES, NUMBNESS, WEAKNESS, FEVER, CHILLS, CHEST PAIN, DIFFICULTY BREATHING, WORST HEADACHE OF HIS LIFE. Chief Complaint: Headache Time Seen by MD: 01:37 Primary Care Provider: DENIES Reviewed Notes: Nurses Notes, [employer] Notes, Medications, Allergies Information Source: Patient Mode of Arrival: EMS Past Medical History PAST MEDICAL HISTORY: ESRD, HTN Surgical History: Denies all surgeries Family History Family History: Family hx of DM, Family hx of heart nikkie Social History Smoker: Non-Smoker Alcohol: Occasionally Drugs: Denies Drug Use Lives In: Home All Other Systems: Reviewed and Negative (see hpi) Physical Exam General Appearance: No Apparent Distress, Normal HEENT: Normal ENT Inspection, Pharynx Normal, TMs Normal Neck: Full Range of Motion, Non-Tender Respiratory: Lungs Clear, No Respiratory Distress, Normal Breath Sounds Cardiovascular: No Edema, No JVD, No Murmur, No Gallop, Normal Peripheral Pul ses, Regular Rate/Rhythm Breast Exam: Deferred Gastrointestinal: No Organomegaly, Non Tender, No Pulsatile Mass, Normal Bowel Sounds, Soft Genitalia: Deferred Pelvic: Deferred Rectal: Deferred Extremities: Normal capillary refill, Normal range of motion, Non-tender, No pedal edema Musculoskeletal : Apperance: Normal Neurologic: Alert, No Motor Deficits, Normal Affect, Normal Mood, No Sensory Deficits Cerebellar Function: Normal Reflexes: NOT DONE Skin: Dry, Normal Color, Warm Lymphatic: No Adenopathy Was a procedure done? Was a procedure done?: No Differential Diagnosis (SZ) Headache: Cluster, Migraine, Epidural Hemorrhage, Intracerebral Hemorrhage, Subarachnoid Hemorrhage, Subdural Hemorrhage, Mass Lesion, Meningitis, Sinusitis X-Ray, Labs, Meds, VS Vital Signs Date Time Temp Pulse Resp B/P (MAP) Pulse Ox O2 Delivery O2 Flow Rate FiO2 02/10/25 01:11 Room Air 02/10/25 01:11 98.1 83 18 125/60 98 98.1 Current Medications Medications (Trade) Dose Ordered Sig/Noa Route Start Time Stop Time Status Last Admin Dexamethasone Sodium Phosphate (Decadron Injection) 10 mg ONCE ONCE IM 02/10/25 02:30 02/10/25 02:31 DC 02/10/25 03:38 Oxycodone/ Acetaminophen (Percocet 5/ 325MG Tablet) 1 tab ONCE ONCE PO 02/10/25 02:30 02/10/25 02:31 DC 02/10/25 03:37 Ondansetron HCl (Zofran Po) 4 mg ONCE ONCE PO 02/10/25 02:30 02/10/25 02:31 DC 02/10/25 03:38 X-Ray, Labs, Meds, VS Comment Brain CT shows no acute intracranial bleeds or masses. Patient given morphine 2 mg IM, Percocet, and Decadron he notes improvement in pain is requesting disc harge at this time. Advised to follow up with his PCP in 2-3 days advised on ER return precautions patient indicates understanding and agrees with discharge plan of care Images Reviewed?: Images reviewed and evaluated by me Time of 1ST Reevaluation: 01:37 Reevaluation 1ST: Unchanged Time of 2ND Reevaluation: 05:35 Reevaluation 2ND: Improved Patient Education/Counseling: Diagnosis, Treatment, Need For Follow Up Family Education/Counseling: No Family Present Departure 1 Departure Time of Disposition: 05:34 Impression: Primary Impression: Headache Disposition: 01 HOME / SELF CARE / HOMELESS Condition: Stable Discharged With: Self Critical Care Note Critical Care Time?: No Stability Stability form required: LONNIE Meraz Feb 10, 2025 02:29
--- NOTE | 2025-02-10 03:09 | DVH ---
MEDICAL RECORDS NUMBER: [id number] PROCEDURE: CT HEAD WITHOUT CONTRAST Date: 02/10/2025 02:38 AM HISTORY: Worst headache of his life TECHNIQUE: Contiguous axial images were acquired from the skull base through to the vertex. CONTRAST: None COMPARISON: None RADIATION DOSE INFORMATION: Automated exposure control dose reduction techniques were used. FINDINGS: Ventricles: Diffuse atrophy is noted. Hypodensity of the cerebral white matter suggests chronic small vessel ischemic changes. The ventricular system otherwise appears unremarkable. Masses: No mass effect is seen. Hemorrhage: No blood products are identified. Skull: The calvarium is intact. Sinuses: The paranasal sinuses are clear. Mastoids: No fluid is seen in the mastoid air cells. IMPRESSION: 1. No acute process is identified.
[2025-02-10] MEDS: OXYCODONE W/ ACETAMINOPHEN 5/325MG TABLET PO ONE (03:37)
[2025-02-10] MEDS: ONDANSETRON ODT 4 MG TAB PO ONE (03:38)
[2025-02-10 05:35] VITALS: O2SAT 100
[2025-02-10 05:42] VITALS: BP 133/67; PULSE 77; RESP 17
[2025-02-10] MEDS: MORPHINE SULFATE INJ 2 MG/ml SYRG IM ONE (05:42)
== END 2025-02-10 06:21 | disposition home or self-care (01) ==
LOC: ER 01:11 → EDUNIT# 01:11 → EDBD 01:11 → ER 06:21
DX: R51.9 Headache, unspecified (principal); F10.90 Alcohol use, unspecified, uncomplicated; I12.0 Hypertensive chronic kidney disease with stage 5 chronic kidney disease or end stage renal disease; N18.6 End stage renal disease
CPT/HCPCS: 70450; 96372; 99285; J1100; J2270; Q0162